=== PATIENT | male | born 1990 | race Caucasian/White ===

== ENCOUNTER 2017-04-22 04:04 | Emergency (ER) | payer OTHER ==
[~2017-04-22] VITALS: Ht 175.3 cm; Wt 73.6 kg
[2017-04-22] MEDS ORDERED: HYDR-3719 (04:19)
[2017-04-22] MEDS ORDERED: OMEP20CA3 (04:19)
[2017-04-22] MEDS ORDERED: ALPR1TAB3 (04:19)
[2017-04-22] MEDS ORDERED: CYCL10TA (04:19)
[2017-04-22] MEDS ORDERED: methylPREDNISolone INJ 125 MG/2 ML VIAL (J2930) IV ONE (05:15)
[2017-04-22] MEDS: IPRATROPIUM 0.5MG/ALBUTEROL 2.5MG INH SOL UD 3ML (DUONEB)(J7620) NEB PRN ×3 (05:25→05:27)
[2017-04-22 05:30] LABS: BASO # 0.1 K/mm3 (0.0-0.2); BASO % 0.9 % (0.0-1.0); EOS # 1.1 K/mm3 (0.0-0.50); EOS % 9.8 % (0.0-3.0); LARGE UNSTAINED CELL # 0.2 K/mm3 (0.0-0.4); LARGE UNSTAINED CELL % 1.4 % (0.0-4.0); LYMPH # 2.2 K/mm3 (1.5-6.5); MEAN CORPUSCULAR HGB CONC 33.3 g/dl (32.0-36.5); MONO # 0.6 K/mm3 (0.0-0.8); MONO % 5.3 % (0.0-5.0); NEUTROPHILS # 7.4 K/mm3 (1.8-7.7); NEUTROPHILS % 64.6 % (36.0-66.0); PLATELET COUNT, AUTOMATED 317 k/mm3 (150-450); RED CELL DISTRIBUTION WIDTH 12.9 % (11.5-14.5); WHITE BLOOD COUNT 11.5 K/mm3 (4.0-10.0)
[2017-04-22 05:42] LABS: ANION GAP 7 MEQ/L (8-16); BLOOD UREA NITROGEN 8 MG/DL (7-18); CALCIUM LEVEL 9.1 MG/DL (8.5-10.1); CARBON DIOXIDE LEVEL 30 MEQ/L (21-32); CHLORIDE LEVEL 104 MEQ/L (98-107); CREATININE FOR GFR 1.14 MG/DL (0.70-1.30); GLOMERULAR FILTRATION RATE > 60.0 (>60); GLUCOSE, FASTING 94 MG/DL (70-105); POTASSIUM SERUM 3.9 MEQ/L (3.5-5.1); SODIUM LEVEL 141 MEQ/L (136-145)
[2017-04-22 05:55] LABS: CONTROL LINE MONO INT CTR LINE PRESENT
[2017-04-22] MEDS ORDERED: AZIT-12 PO (07:11)
[2017-04-22] MEDS ORDERED: ALBU17IN INH (07:11)
[2017-04-22] MEDS ORDERED: ALBU83IN INH (07:11)
[2017-04-22] MEDS ORDERED: PRED20TA PO (07:11)
[2017-04-22] MEDS ORDERED: AZITHROMYCIN 250 MG TAB PO ONE (07:15)
[2017-04-22 07:22] VITALS: BP 149/75
--- NOTE | 2017-04-22 07:23 | REP ---
PA and lateral chest: There are no comparisons. The lung morales are clear. The cardiac size is normal The jeanette, mediastinum, and bony thorax are unremarkable. Impression: Negative PA and lateral chest. Signed by Semaj Cee MD 04/22/2017 07:14 A
--- NOTE | 2017-04-22 08:05 | ECGEPIP ---
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
== END 2017-04-22 07:57 | disposition home or self-care (01) ==
LOC: M ED 04:04
DX: J20.9 Acute bronchitis, unspecified (principal); J45.909 Unspecified asthma, uncomplicated; Z79.899 Other long term (current) drug therapy; F17.210 Nicotine dependence, cigarettes, uncomplicated
CPT/HCPCS: 71020; 80048; 85025; 86308; 87486; 87581; 87633; 87798; 93000; 93041; 94640; 94760; 96374; 99284; J2930

== ENCOUNTER 2017-06-15 12:28 | Emergency (ER) | payer OTHER ==
[~2017-06-15] VITALS: Ht 175.3 cm; Wt 77.3 kg
[~2017-06-15 12:28] MED LIST: ALBU17IN INH; ALBU83IN INH; ALPR1TAB3; AZIT-12 PO; CYCL10TA; HYDR-3719; OMEP20CA3; PRED20TA PO
[2017-06-15] MEDS ORDERED: BREO1INH INH (12:40)
[2017-06-15] MEDS ORDERED: PRED20TA PO ×2 (14:42→15:00)
[2017-06-15] MEDS ORDERED: predniSONE 20 MG TAB PO ONE (14:45)
[2017-06-15 14:47] VITALS: BP 112/74
== END 2017-06-15 15:06 | disposition home or self-care (01) ==
LOC: M ED 12:28
DX: J98.01 Acute bronchospasm (principal); J06.9 Acute upper respiratory infection, unspecified; F17.200 Nicotine dependence, unspecified, uncomplicated; J45.909 Unspecified asthma, uncomplicated; K21.9 Gastro-esophageal reflux disease without esophagitis; Q05.9 Spina bifida, unspecified; M41.9 Scoliosis, unspecified; Z79.899 Other long term (current) drug therapy

== ENCOUNTER 2017-07-08 22:35 | Emergency (ER) | payer OTHER ==
[~2017-07-08] VITALS: Ht 177.8 cm; Wt 77.3 kg
[~2017-07-08 22:35] MED LIST changes: +BREO1INH INH
[2017-07-08] MEDS ORDERED: CYCL10TA (23:06)
[2017-07-09 01:21] VITALS: BP 138/89
== END 2017-07-09 01:23 | disposition home or self-care (01) ==
LOC: EDBD 22:35 → M ED 22:35
DX: Z60.9 Problem related to social environment, unspecified (principal); Z72.0 Tobacco use

== ENCOUNTER 2017-12-11 17:35 | Emergency (ER) | payer OTHER ==
[2017-12-11] MEDS: MORPHINE 4 MG/ML 1ML VIAL/SYRINGE (J2270) IM (18:17)
== END 2017-12-11 19:12 | disposition home or self-care (01) ==
LOC: M ED 17:35
DX: K02.9 Dental caries, unspecified (principal); R68.84 Jaw pain; Z79.899 Other long term (current) drug therapy; Z79.2 Long term (current) use of antibiotics
CPT/HCPCS: J2270

== ENCOUNTER → 2019-05-14 | Outpatient (CLI) | payer MEDICAID ==
[~2019-05-14] MED LIST changes: +CEPH500C PO; +FLON1SPR; +IBUP-1022 PO; -OMEP20CA3; +OMEP20CA4; +PERC5TAB12 PO
== END ==
LOC: M OUTALCOH 08:03
PROVIDERS: ATTEND Psychiatry & Neurology Psychiatry
DX: F11.20 Opioid dependence, uncomplicated (principal); F12.20 Cannabis dependence, uncomplicated

== ENCOUNTER → 2019-12-03 | Outpatient (CLI) | payer MEDICAID ==
[~2019-12-03] MED LIST changes: +CYCL-707; -CYCL10TA; +OMEP1CAP73; -OMEP20CA4
--- NOTE | 2019-12-04 00:50 | REP ---
Clinical: Asthma with acute exacerbation . Comparison: 04/22/2017 . Technique: PA and lateral. Findings: The mediastinum and cardiac silhouette are normal. The lung morales are clear and without acute consolidation, effusion, or pneumothorax. The skeletal structures are intact and normal. Impression: 1. No acute cardiopulmonary process. Electronically Signed by Star Sweeney MD 12/04/2019 12:39 A
== END ==
LOC: M WUC 15:29
PROVIDERS: ATTEND Physician Assistant
DX: J45.21 Mild intermittent asthma with (acute) exacerbation (principal)

== ENCOUNTER → 2020-04-06 | Outpatient (CLI) | payer MEDICAID ==
[~2020-04-06] MED LIST changes: +ALBU83IN NEB; -ALPR1TAB3; +ALPR1TAB3 PO; +AMOX500C PO; +ARNU1INH3 INH; +IBUP-359 PO; +LORT1ELX PO; +METH10CO PO; +METH10TA2 PO; +PERI0.126 MT; +PERI12LIQ SSP
[2020-04-06 15:12] LABS: HEMATOCRIT 47.6 % (42.0-52.0); MEAN CORPUSCULAR HEMOGLOBIN 30.1 pg (27.0-33.0); MEAN CORPUSCULAR HGB CONC 33.6 g/dl (32.0-36.5); MEAN CORPUSCULAR VOLUME 89.5 fl (80.0-96.0); PLATELET COUNT, AUTOMATED 339 10^3/uL (150-450); RED BLOOD COUNT 5.32 10^6/uL (4.30-6.10); WHITE BLOOD COUNT 9.2 10^3/uL (4.0-10.0)
[2020-04-06 15:19] LABS: ALBUMIN 3.8 GM/DL (3.2-5.2); ALT/SGPT 32 U/L (12-78); BILIRUBIN,TOTAL 0.4 MG/DL (0.2-1.0); BLOOD UREA NITROGEN 7 MG/DL (7-18); CALCIUM LEVEL 9.5 MG/DL (8.5-10.1); CARBON DIOXIDE LEVEL 28 MEQ/L (21-32); CHLORIDE LEVEL 103 MEQ/L (98-107); CREATININE FOR GFR 1.21 MG/DL (0.70-1.30); GLOMERULAR FILTRATION RATE > 60.0 (>60); GLUCOSE, FASTING 90 MG/DL (70-100); POTASSIUM SERUM 4.4 MEQ/L (3.5-5.1); SODIUM LEVEL 138 MEQ/L (136-145); TOTAL PROTEIN 6.8 GM/DL (6.4-8.2)
[2020-04-06 15:27] LABS: HEPATITIS B SURFACE ANTIGEN NEGATIVE (NEGATIVE)
[2020-04-06 15:55] LABS: HEPATITIS C VIRUS ABY INDEX 0.2 INDEX (<0.8)
[2020-04-06 15:56] LABS: HIV 1&2 SCREEN CENTAUR NEGATIVE (NEGATIVE)
[2020-04-06 16:35] LABS: CHLAMYDIA DNA AMPLIFICATION NEGATIVE (NEGATIVE); GC DNA AMPLIFICATION NEGATIVE (NEGATIVE)
== END ==
LOC: M WUC 09:16
PROVIDERS: ATTEND Family Medicine
DX: F11.20 Opioid dependence, uncomplicated (principal)

== ENCOUNTER 2020-04-17 08:57 | Day surgery (SDC) | payer MEDICAID, OTHER ==
[~2020-04-17] VITALS: Ht 175.3 cm; Wt 102.1 kg
[~2020-04-17 08:57] MED LIST changes: -ALBU83IN NEB; -AMOX500C PO; -ARNU1INH3 INH; -IBUP-359 PO; -LORT1ELX PO; -METH10CO PO; -METH10TA2 PO; -PERI0.126 MT; -PERI12LIQ SSP
[2020-04-17] MEDS ORDERED: AMOX500C PO (09:06)
[2020-04-17] MEDS ORDERED: PERI12LIQ SSP (09:06)
[2020-04-17] MEDS ORDERED: ARNU1INH3 INH (09:06)
[2020-04-17] MEDS ORDERED: METH10TA2 PO (09:09)
[2020-04-17] MEDS ORDERED: NS 1,000 ML IV SCH (09:30)
[2020-04-17] MEDS ORDERED: AMPICILLIN SOD/SULBACTAM SOD 3 GM in D5W MINI-BAG PLUS 100 ML IV ONE ×2 (09:30→16:00)
[2020-04-17] MEDS ORDERED: dexameTHASONE 20MG/5ML VIAL (J1100 PER 1MG) IV ONE (09:30)
[2020-04-17] MEDS ORDERED: KETOROLAC 30 MG/ML 1ML VIAL IV ONE (09:45)
[2020-04-17] MEDS ORDERED: KETOROLAC 30 MG/ML 1ML VIAL As Ordered ONE (09:47)
[2020-04-17] MEDS ORDERED: METH10CO PO (10:01)
[2020-04-17] MEDS ORDERED: ALBU83IN NEB (10:08)
[2020-04-17] MEDS ORDERED: PRED20TA PO (10:08)
[2020-04-17] MEDS ORDERED: ALBUTEROL SULFATE 2.5 MG/0.5 ML INH NEB SOLN NEB ONE (11:00)
[2020-04-17] MEDS ORDERED: ACETAMINOPHEN 1000MG 100ML IV BTL (OFIRMEV) (J0131 PER 10MG) As Ordered ONE (12:04)
[2020-04-17] MEDS ORDERED: LIDOCAINE 5% OINT 30 GM As Ordered ONE ×2 (12:04→13:43)
[2020-04-17] MEDS ORDERED: LIDOCAINE 2% 100MG/5ML SDV (FOR ANES.) As Ordered ONE (12:04)
[2020-04-17] MEDS ORDERED: ONDANSETRON 4MG/2ML VIAL As Ordered ONE (12:04)
[2020-04-17] MEDS ORDERED: fentaNYL 250 MCG/5 ML INJECTION (J3010) As Ordered ONE (12:04)
[2020-04-17] MEDS ORDERED: propofoL 200 MG/20 ML VIAL As Ordered ONE ×5 (12:04→14:02)
[2020-04-17] MEDS ORDERED: METOCLOPRAMIDE INJ 10MG/2ML VIAL (J2765 PER 1) As Ordered ONE (12:04)
[2020-04-17] MEDS ORDERED: MIDAZOLAM INJ 2MG/2ML VIAL (J2250 PER 1MG) As Ordered ONE (12:04)
[2020-04-17] MEDS ORDERED: LIDOCAINE 2% W/ EPINEPHRINE 1.7 ML DENTAL INJ As Ordered ONE (12:05)
[2020-04-17] MEDS ORDERED: dexameTHASONE 4 MG/ML 1ML VIAL (J1100 PER 1MG) As Ordered ONE (13:12)
[2020-04-17] MEDS ORDERED: SUGAMMADEX SODIUM 500 MG/5 ML VIAL (BRIDION) As Ordered ONE (13:18)
[2020-04-17] MEDS ORDERED: ALBUTEROL 6.7GM INHALER **FOR ANES. CART/OMNICELL ONLY As Ordered ONE (13:44)
[2020-04-17] MEDS ORDERED: fentaNYL 100 MCG/2 ML INJECTION (J3010) As Ordered ONE ×2 (13:59→15:18)
[2020-04-17] MEDS ORDERED: PERCOCET 5MG/325MG TAB As Ordered ONE (15:18)
[2020-04-17] MEDS: fentaNYL 100 MCG/2 ML INJECTION (J3010) IV PRN ×4 (15:18→15:33)
[2020-04-17 15:33] VITALS: BP 142/97
[2020-04-17] MEDS ORDERED: ONDANSETRON 4MG/2ML VIAL IV PRN (15:45)
[2020-04-17] MEDS ORDERED: LR 1,000 ML IV SCH (15:45)
[2020-04-17] MEDS ORDERED: PERCOCET 5MG/325MG TAB PO PRN (15:45)
[2020-04-17] MEDS ORDERED: METOCLOPRAMIDE INJ 10MG/2ML VIAL (J2765 PER 1) IV PRN (15:45)
[2020-04-17] MEDS ORDERED: IBUP-359 PO (16:38)
[2020-04-17] MEDS ORDERED: LORT1ELX PO (16:38)
[2020-04-17] MEDS ORDERED: PERI0.126 MT (16:38)
--- NOTE | 2020-05-02 12:06 | RO ---
DATE OF OPERATION: 04/17/2020 PREOPERATIVE DIAGNOSIS: Left buccal space abscess and necrotic and symptomatic teeth #1, 2, 3, 4, 5, 6, 7, 8, 9, 10, 11, 12, 13, 14, 15, 16, 18, 19, 20, 21, 28, 29, 30, 31, 32 and to note, #1 is a full bony impacted tooth with gross caries. POSTOPERATIVE DIAGNOSIS: Status post the above procedure PROCEDURE: Extraction of all the aforementioned teeth as well as incision and drainage of left buccal space abscess. SURGEON: Bharath Hernandez D.M.D., M.D. ANESTHESIA: General endotracheal anesthesia via nasal JACKI. SPECIMEN: Teeth for gross only. INDICATIONS FOR SURGERY: Mr. Wilkerson is a pleasant, 30-year-old male who self referred himself to the emergency room in the early hours of April 17 complaining of tooth pain and fascial swelling. On fluoro examination he had obvious left facial swelling that went into his left cheek. The neck was not involved. There was no lymphadenopathy noted. Clinical examination revealed necrotic and severely grossly decayed teeth in the upper arch with an impacted just #1 with gross caries and teeth #18, 19, 20, 21, 28, 29, 30 and 32 and 31. Tooth #17 was impacted and not noted. He does have swelling in his left lower vestibule with purulence stemming from the sulcus of teeth #19 and 8. The floor of the mouth was nonelevated. Its maximal intercisal opening was large at 50 mm. I did not order a CT scan and I did not order a CBC to at any blood values. A discussion was made with the patient regarding his treatment options. At this point, on Saturday, the only option we have is take the patient to the operating room, place him under general anesthesia and perform the incision and drainage and the extractions and that is exactly what he elected to do. A complete history and physical was performed and in the patients chart as well as an informed consent which was explained to the patient in detail and is also in the patients chart. DESCRIPTION OF PROCEDURE: The patient was taken back to the operating room. He was laid supine on the operating room table. Ulnar nerve protectors were placed. Noninvasive cardiac monitors were then applied. At that point, the patient underwent general anesthesia and was intubated with a nasal JACKI. He was then prepped and draped in the usual sterile fashion. A timeout procedure was performed to identify the patient, the procedure and any other precautions. Preoperative antibiotics were already given three hours prior. At this point, a moist throat pack was inserted in the patient's oropharynx followed by the administration of 2% lidocaine with 1:100,000 epinephrine as multiple infiltrations and blocks. A full thickness flap was released over the tuberosity area of #1. The flap was reflected. The crown of the tooth was noted at this point which was grossly and impacted. A small amount of buccal bone was removed and the tooth was then luxated and luxated and delivered with ease. Attention was then given to teeth #2, 3, 4, 5, 6, and 11, 12, 13, 14, 15, 16 where buccal bone was removed and the teeth were the luxated and delivered with ease without any incident. No sign of exposure was noted and at this point, routine extraction of teeth #7, 8, 9 and 10 was performed and alveoloplasty was then performed in the upper left and upper right quadrants to remove all undercuts and sharp bony edges down a smooth finish. The flaps were then closed with interrupted 3-0 Chromic sutures. Once all the upper teeth were removed, attention was then given to the lower left quadrant where a full thickness flap was performed in sites #18, 19, 20, 21. Small distal incision was made. Buccal bone was removed from sites #18, 19, 20 and 21. The teeth were then luxated and delivered with ease. Further dissection subperiosteally was done in that area all the way down to the inferior border of the mandible to evacuate all necrotic tissue and purulent material which was encountered, copious irrigation with Peridex and flap was then closed with 0 Chromic sutures. Finally attention was then given to the lower right quadrant. Full thickness flap was released at sites #27, 28, 29, 30, 31 and 32. The flap was reflected subperiosteally. Small buccal bone was removed from sites #32, 31, 30, 29 and 28. The teeth were then luxated and delivered with ease. All the sockets were curetted and irrigated. Flaps were then closed with 3-0 Chromics. At this point with the proposed planned teeth being removed, the oral cavity was irrigated and suctioned. The throat pack was removed. The patient was then awakened from general anesthesia and taken back to the PACU for further monitoring. COMPLICATIONS: None to mention at time of surgery. ESTIMATED BLOOD LOSS: About 20 mL DRAINS: There were no drains placed. MTDD
== END 2020-04-17 17:25 | disposition home or self-care (01) ==
LOC: M ED 08:57 → M SDC 10:50 → M MS5PR 15:59 → M SDC 17:25
PROVIDERS: ATTEND Dentist
DX: K02.9 Dental caries, unspecified (principal); K12.2 Cellulitis and abscess of mouth; K21.9 Gastro-esophageal reflux disease without esophagitis; J45.909 Unspecified asthma, uncomplicated; F32.9 Major depressive disorder, single episode, unspecified; F41.9 Anxiety disorder, unspecified; F17.218 Nicotine dependence, cigarettes, with other nicotine-induced disorders; Z79.891 Long term (current) use of opiate analgesic; Z79.899 Other long term (current) drug therapy
CPT/HCPCS: 88300; 94640; 96361; 96365; 96375; 99284; D7210; D7240; D7510; D9223; J0131; J1100; J1885; J2250; J2405; J2765; J3010; U0002

== ENCOUNTER → 2020-11-13 | Outpatient (CLI) | payer OTHER ==
[~2020-11-13] MED LIST changes: +ALBU83IN NEB; +AMOX500C PO; +ARNU1INH3 INH; +BREO1INH3; +CETI10CH PO; +IBUP-359 PO; +LORT1ELX PO; +METH10CO PO; +METH10TA2 PO; +PERI0.126 MT; +PERI12LIQ SSP
== END ==
LOC: M LABSMTC 09:34
PROVIDERS: ATTEND Anesthesiology
DX: Z01.812 Encounter for preprocedural laboratory examination (principal)

== ENCOUNTER 2020-11-18 06:33 | Day surgery (SDC) | payer OTHER ==
[~2020-11-18] VITALS: Ht 177.8 cm; Wt 102.9 kg
[~2020-11-18 06:33] MED LIST changes: +AMPICILLIN SOD/SULBACTAM SOD 3 GM in D5W MINI-BAG PLUS 100 ML IV ONE; +LIDOCAINE 1% MDV 20ML VIAL SQ PRN; +dexameTHASONE 4 MG/ML 1ML VIAL (J1100 PER 1MG) IV ONE
[2020-11-18] MEDS ORDERED: LR 1,000 ML IV ONE (07:00)
[2020-11-18] MEDS ORDERED: LIDOCAINE 2% W/ EPINEPHRINE 1.7 ML DENTAL INJ As Ordered ONE (07:08)
[2020-11-18] MEDS ORDERED: ONDANSETRON 4MG/2ML VIAL As Ordered ONE (07:20)
[2020-11-18] MEDS ORDERED: LIDOCAINE 2% 100MG/5ML SDV (FOR ANES.) As Ordered ONE (07:20)
[2020-11-18] MEDS ORDERED: ROCURONIUM BROMIDE 50 MG/5 ML VIAL As Ordered ONE (07:20)
[2020-11-18] MEDS ORDERED: MIDAZOLAM INJ 2MG/2ML VIAL (J2250 PER 1MG) As Ordered ONE (07:20)
[2020-11-18] MEDS ORDERED: dexameTHASONE 4 MG/ML 1ML VIAL (J1100 PER 1MG) As Ordered ONE (07:20)
[2020-11-18] MEDS ORDERED: fentaNYL 100 MCG/2 ML INJECTION (J3010) As Ordered ONE ×2 (07:20→07:52)
[2020-11-18] MEDS ORDERED: SUGAMMADEX SODIUM 500 MG/5 ML VIAL (BRIDION) As Ordered ONE (07:20)
[2020-11-18] MEDS ORDERED: propofoL 200 MG/20 ML VIAL As Ordered ONE (07:20)
[2020-11-18] MEDS ORDERED: LABETALOL 100MG/20ML VIAL As Ordered ONE (07:55)
--- NOTE | 2020-11-18 08:51 | RO ---
OPERATIVE NOTE DATE OF OPERATION: 11/18/2020 PREOPERATIVE DIAGNOSES: 1. Family history of malignant hypothermia. 2. Severe dental anxiety. 3. Hopeless teeth #17, 22, 23, 24, 25, 26, 27. POSTOPERATIVE DIAGNOSES: Status post: 1. Family history of malignant hypothermia. 2. Severe dental anxiety. 3. Hopeless teeth #17, 22, 23, 24, 25, 26, 27. PROCEDURE PERFORMED: Extraction of teeth #17, 22, 23, 24, 25, 26, 27. 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 SPECIMEN: Teeth for gross only. INDICATIONS FOR SURGERY: The patient is a pleasant 30-year-old male. He self-referred himself to my office for evaluation for extraction of all the remaining lower teeth. He does have significant dental anxiety. His mother has history of malignant hypothermia and he does have difficult airway. Therefore, office-based anesthesia was not an option. I did offer nitrous with local in the office versus general anesthesia in operating room setting. Due to his severe anxiety he elected to have the procedure done in an operating room setting under general anesthesia. All risks, benefits and alternatives were explained to the patient, informed consent was obtained and signed. Complete history and physical was performed and is in the patient's chart. DESCRIPTION OF PROCEDURE: The patient was taken back to the operating room, he was laid supine on the operating room table. Ulnar nerve protectors were placed. Noninvasive cardiac monitors were applied. At that point the patient underwent general anesthesia and was intubated with an oral JACKI. Preoperative antibiotics and steroids were administered in the IV. He was prepped and draped in the usual sterile fashion. Time out procedure was performed identifying the patient, procedure and any other precautions. This was followed by the insertion of moist throat pack into the patient's oropharynx followed by administration of 5 carpules of 2% Lidocaine with 1:100,000 Epinephrine as local infiltrations and blocks. Full thickness flap was released in sites #17, 22, 27. Small buccal trough was made in the three teeth areas that I just mentioned and the teeth were luxated and delivered without any incident. Flaps were closed with 3-0 chromic sutures. Routine forceps extraction of teeth #23, 24, 25, 26, was performed. Sockets curetted and irrigated and papillae were reapproximated with 3-0 chromic. At this point, once the teeth were removed, the oral cavity was irrigated and suctioned. Throat pack was removed. The patient was awakened from general anesthesia and taken back to the PACU under the care of the anesthesiologist and surgeon. COMPLICATIONS: None to mention at the time of surgery. ESTIMATED BLOOD LOSS: 10 mL. DRAINS: There were no drains placed.
[2020-11-18] MEDS ORDERED: oxyCODONE 5MG TAB PO PRN (09:10)
[2020-11-18] MEDS ORDERED: ACETAMINOPHEN 500 MG TAB PO ONE (09:10)
[2020-11-18] MEDS ORDERED: ONDANSETRON 4MG/2ML VIAL IV PRN (09:10)
[2020-11-18] MEDS ORDERED: fentaNYL 100 MCG/2 ML INJECTION (J3010) IV PRN (09:10)
[2020-11-18] MEDS ORDERED: LR 1,000 ML IV SCH (09:10)
[2020-11-18 10:35] VITALS: BP 132/87
== END 2020-11-18 10:35 | disposition home or self-care (01) ==
LOC: M SDC 06:33
PROVIDERS: ATTEND Dentist
DX: K02.9 Dental caries, unspecified (principal); K21.9 Gastro-esophageal reflux disease without esophagitis; J45.909 Unspecified asthma, uncomplicated; F32.9 Major depressive disorder, single episode, unspecified; F41.9 Anxiety disorder, unspecified; F17.218 Nicotine dependence, cigarettes, with other nicotine-induced disorders; Z79.891 Long term (current) use of opiate analgesic; F12.10 Cannabis abuse, uncomplicated
CPT/HCPCS: 88300; D7210; D9223; J1100; J2250; J2405; J3010

== ENCOUNTER → 2020-11-28 | Outpatient (CLI) | payer OTHER ==
[~2020-11-28] MED LIST changes: -AMPICILLIN SOD/SULBACTAM SOD 3 GM in D5W MINI-BAG PLUS 100 ML IV ONE; -LIDOCAINE 1% MDV 20ML VIAL SQ PRN; -dexameTHASONE 4 MG/ML 1ML VIAL (J1100 PER 1MG) IV ONE
--- NOTE | 2020-11-28 16:04 | ECGEPIP ---
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
== END ==
LOC: M EKG 12:57
PROVIDERS: ATTEND Family Medicine
DX: F11.20 Opioid dependence, uncomplicated (principal); R00.1 Bradycardia, unspecified

== ENCOUNTER → 2021-08-12 | Outpatient (CLI) | payer OTHER ==
[~2021-08-12] MED LIST changes: +METH-1177 PO; -METH10TA2 PO
[2021-08-12 12:32] LABS: HEMATOCRIT 45.2 % (42.0-52.0); HEMOGLOBIN 14.8 g/dl (13.5-17.5); MEAN CORPUSCULAR HEMOGLOBIN 29.8 pg (27.0-33.0); MEAN CORPUSCULAR HGB CONC 32.7 g/dl (32.0-36.5); MEAN CORPUSCULAR VOLUME 91.1 fl (80.0-96.0); PLATELET COUNT, AUTOMATED 289 10^3/uL (150-450); RED BLOOD COUNT 4.96 10^6/uL (4.30-6.10); WHITE BLOOD COUNT 7.9 10^3/uL (4.0-10.0)
[2021-08-12 12:59] LABS: ALBUMIN 3.8 GM/DL (3.2-5.2); ALT/SGPT 31 U/L (12-78); BILIRUBIN,TOTAL 0.2 MG/DL (0.2-1.0); BLOOD UREA NITROGEN 9 MG/DL (7-18); CARBON DIOXIDE LEVEL 32 MEQ/L (21-32); CHLORIDE LEVEL 104 MEQ/L (98-107); CREATININE FOR GFR 1.21 MG/DL (0.70-1.30); GLOMERULAR FILTRATION RATE > 60.0 (>60); GLUCOSE, FASTING 80 MG/DL (70-100); POTASSIUM SERUM 4.4 MEQ/L (3.5-5.1); SODIUM LEVEL 139 MEQ/L (136-145); TOTAL PROTEIN 6.7 GM/DL (6.4-8.2)
[2021-08-12 14:39] LABS: GC DNA AMPLIFICATION NEGATIVE (NEGATIVE)
[2021-08-14 11:01] LABS: HEPATITIS B SURFACE ANTIGEN NEGATIVE (NEGATIVE)
[2021-08-14 11:29] LABS: HEPATITIS C VIRUS ABY INDEX 0.1 INDEX (<0.8); HIV 1&2 SCREEN CENTAUR NEGATIVE (NEGATIVE)
[2021-08-15 15:12] LABS: HEPATITIS C QUANTITATION HCV Not Detected IU/mL (.)
== END ==
LOC: M EKG 11:09
PROVIDERS: ATTEND Family Medicine
DX: F11.20 Opioid dependence, uncomplicated (principal)

== ENCOUNTER 2022-01-20 08:24 | Emergency (ER) | payer OTHER ==
[~2022-01-20] VITALS: Ht 177.8 cm; Wt 94.8 kg
[~2022-01-20 08:24] MED LIST changes: +ALBU2.5V10 INH; +ALBU2.5V10 NEB; -ALBU83IN INH; -ALBU83IN NEB
[2022-01-20] MEDS ORDERED: methylPREDNISolone 125MG 2ML VIAL IV ONE (10:10)
[2022-01-20] MEDS: MAG SULF 1GM/100ML (MAG RUN) 1 GM in IV 1 EA IV SCH ×2 (10:20→10:51)
[2022-01-20] MEDS ORDERED: IPRATROPIUM 0.5MG/ALBUTEROL 2.5MG INH SOL UD 3ML (DUONEB) NEB ONE (10:25)
[2022-01-20 10:57] LABS: BASO # 0.1 10^3/uL (0.0-0.2); BASO % 0.4 % (0.0-1.0); EOS % 0.1 % (0.0-3.0); HEMOGLOBIN 14.9 g/dl (13.5-17.5); LYMPH # 2.4 10^3/uL (1.5-5.0); LYMPH % 14.7 % (24.0-44.0); MEAN CORPUSCULAR HGB CONC 33.1 g/dl (32.0-36.5); MEAN CORPUSCULAR VOLUME 90.5 fl (80.0-96.0); MONO % 9.4 % (2.0-8.0); NEUTROPHILS # 12.3 10^3/uL (1.5-8.5); NEUTROPHILS % 74.6 % (36.0-66.0); PLATELET COUNT, AUTOMATED 361 10^3/uL (150-450); RED BLOOD COUNT 4.97 10^6/uL (4.30-6.10); WHITE BLOOD COUNT 16.5 10^3/uL (4.0-10.0)
[2022-01-20 11:21] LABS: MONO # 1.6 10^3/uL (0.0-0.8)
[2022-01-20 11:28] LABS: BLOOD UREA NITROGEN 11 MG/DL (7-18); CALCIUM LEVEL 9.2 MG/DL (8.5-10.1); CARBON DIOXIDE LEVEL 32 MEQ/L (21-32); CHLORIDE LEVEL 104 MEQ/L (98-107); CREATININE FOR GFR 1.02 MG/DL (0.70-1.30); GLOMERULAR FILTRATION RATE > 60.0 (>60); GLUCOSE, FASTING 98 MG/DL (70-100); POTASSIUM SERUM 4.6 MEQ/L (3.5-5.1); SODIUM LEVEL 137 MEQ/L (136-145)
[2022-01-20 11:49] VITALS: BP 137/81
[2022-01-20] MEDS ORDERED: NYST50SS PO (11:50)
== END 2022-01-20 11:50 | disposition home or self-care (01) ==
LOC: M ED 08:24
DX: J45.901 Unspecified asthma with (acute) exacerbation (principal); B37.0 Candidal stomatitis; F41.9 Anxiety disorder, unspecified; K21.9 Gastro-esophageal reflux disease without esophagitis; F17.200 Nicotine dependence, unspecified, uncomplicated; F12.10 Cannabis abuse, uncomplicated; Z79.51 Long term (current) use of inhaled steroids; Z79.899 Other long term (current) drug therapy
CPT/HCPCS: 36415; 71046; 80048; 85025; 87428; 93041; 94640; 94760; 96374; 99284; J2930; J3475

== ENCOUNTER → 2022-04-01 | Outpatient (CLI) | payer OTHER ==
[~2022-04-01] MED LIST changes: +CLON0.5T17 PO; +NYST50SS PO; +OMEP-173 PO; +ONDA4TAB6 PO
== END ==
LOC: M LABSMTC 11:01
PROVIDERS: ATTEND Anesthesiology
DX: Z01.818 Encounter for other preprocedural examination (principal); Z11.52 Encounter for screening for COVID-19

== ENCOUNTER 2022-04-04 06:59 | Day surgery (SDC) | payer OTHER ==
[~2022-04-04] VITALS: Ht 177.8 cm; Wt 107.1 kg
[~2022-04-04 06:59] MED LIST changes: +NS 1,000 ML IV ONE
[2022-04-04] MEDS ORDERED: fentaNYL 100 MCG/2 ML INJECTION As Ordered ONE (07:05)
[2022-04-04] MEDS ORDERED: SIMETHICONE 40MG/0.6ML DROPS 30ML As Ordered ONE (07:08)
[2022-04-04] MEDS ORDERED: ALBU8.5H INH (07:11)
[2022-04-04] MEDS ORDERED: propofoL 200 MG/20 ML VIAL As Ordered ONE (08:00)
[2022-04-04] MEDS ORDERED: LIDOCAINE 2% 100MG/5ML SDV (FOR ANES.) As Ordered ONE (08:01)
[2022-04-04 08:06] VITALS: BP 170/96
== END 2022-04-04 08:17 | disposition home or self-care (01) ==
LOC: M OPP 06:59
PROVIDERS: ATTEND Surgery
DX: K29.70 Gastritis, unspecified, without bleeding (principal); K63.89 Other specified diseases of intestine; K44.9 Diaphragmatic hernia without obstruction or gangrene; K92.0 Hematemesis; J45.909 Unspecified asthma, uncomplicated; F32.9 Major depressive disorder, single episode, unspecified; F41.9 Anxiety disorder, unspecified; F17.200 Nicotine dependence, unspecified, uncomplicated; Z79.51 Long term (current) use of inhaled steroids; Z79.52 Long term (current) use of systemic steroids; Z79.891 Long term (current) use of opiate analgesic; Z79.899 Other long term (current) drug therapy
CPT/HCPCS: 43239; 88305; J3010

== ENCOUNTER 2022-04-13 20:09 | Emergency (ER) | payer OTHER ==
[~2022-04-13] VITALS: Ht 177.8 cm; Wt 104.5 kg
[2022-04-13 20:09] VITALS: BP 137/87
[~2022-04-13 20:09] MED LIST changes: +ALBU8.5H INH; -NS 1,000 ML IV ONE
== END 2022-04-13 21:45 | disposition left against medical advice (07) ==
LOC: M ED 20:09
DX: Z53.29 Procedure and treatment not carried out because of patient's decision for other reasons (principal)

== ENCOUNTER → 2022-09-19 | Outpatient (CLI) | payer OTHER ==
[~2022-09-19] MED LIST changes: +NYST-38 PO; -NYST50SS PO
== END ==
LOC: M WUC 14:54
PROVIDERS: ATTEND Nurse Practitioner Adult Health
DX: J45.51 Severe persistent asthma with (acute) exacerbation (principal)

== ENCOUNTER → 2022-09-26 | Outpatient (REF) | payer OTHER | LOC: M LAB REF 16:57 | PROVIDERS: ATTEND Nurse Practitioner Adult Health | DX: J45.50 Severe persistent asthma, uncomplicated (principal) ==

== ENCOUNTER → 2022-10-03 | Outpatient (CLI) | payer OTHER | LOC: M PLAIMG 13:16 | PROVIDERS: ATTEND Nurse Practitioner Adult Health | DX: R91.8 Other nonspecific abnormal finding of lung field (principal) ==

== ENCOUNTER → 2022-10-23 | Outpatient (CLI) | payer OTHER | LOC: M WUC 12:47 | PROVIDERS: ATTEND Nurse Practitioner Adult Health | DX: R91.8 Other nonspecific abnormal finding of lung field (principal) ==

== ENCOUNTER → 2023-07-24 | Outpatient (REF) | LOC: M PLAIMG 14:24 | PROVIDERS: ATTEND Internal Medicine | DX: R52 Pain, unspecified (principal) ==